=== PATIENT | female | born 1985 | race Two or more races ===

== ENCOUNTER 2025-04-29 08:32 | Emergency (ER) | payer MEDICAID, OTHER ==
[~2025-04-29] VITALS: Ht 165.1 cm; Wt 78.0 kg
--- NOTE | 2025-04-29 09:28 | ED.PDOC ---
Back pain HPI HPI Comments 39 year old female with no past medical history presents to the ED with chief complaint of low back pain onset 2 days. Patient is currently 7 weeks , P:1 A:1. Patient began experiencing low back pain as well as suprapubic pain for the past 2 days, has not taken medication to manage pain. Last OBGYN visit was 04/23/25, was diagnosed with Bacterial Vaginosis, was given treatment, next appointment is 05/07/25. Currently rates pain 8/10. No other symptoms or modifying factors present a this time. Denies trauma or heavy lifting Denies fevers chills night sweats nausea vomiting Denies previous back procedures or surgeries Denies dysuria, hematuria Chief Complaint: Back Pain Time Seen by MD: 09:10 Reviewed Notes: Medications, Allergies Allergies: Coded Allergies: NO KNOWN ALLERGIES (Unverified , 04/29/25) Information Source: Patient Mode of Arrival: Ambulatory Timing: Days Duration: Since onset Severity: Moderate Prehospital treatment: None Quality: Sharp Onset: Spontaneous History of: None Modifying Factors: Nothing Past Medical History PAST MEDICAL HISTORY: Denies Surgical History: Denies all surgeries CONTINUOUS IMPROVEMENT CONSULTANT History: No Pertinent CONTINUOUS IMPROVEMENT CONSULTANT History Family History Family History: Reviewed,noncontributory to illness, No family hx of Cancer, No family hx of DM, No family hx of Heart jose, No family hx of HTN, No family hx ofKidney jose, No family hx of Liver jose, No family hx of Lung jose, No family hx of Stroke Social History Smoker: Non-Smoker Alcohol: Denies ETOH Use Drugs: Denies Drug Use Lives In: Home All Other Systems: Reviewed and Negative (as per HPI) Physical Exam General Appearance: No Apparent Distress, Normal HEENT: Normal ENT Inspection, Pharynx Normal, TMs Normal Neck: Full Range of Motion, Non-Tender, Normal, Normal Inspection Respiratory: Chest Non-Tender, Lungs Clear, No Accessory Muscle Use, No Respiratory Distress, Normal Breath Sounds Cardiovascular: No Edema, No JVD, No Murmur, No Gallop, Normal Peripheral Pulses, Regular Rate/Rhythm Breast Exam: Deferred Gastrointestinal: No Organomegaly, Non Tender, No Pulsatile Mass, Normal Bowel Sounds, Soft, Other (pain to suprapubic region) Genitalia: Deferred Pelvic: Deferred Rectal: Deferred Extremities: No calf tenderness, Normal capillary refill, Normal inspection, Normal range of motion, Non-tender, No pedal edema Musculoskeletal : Location: Bilateral (back pain located bilateral lumbar region, ) Extremity Location: Back Apperance: Normal Neurologic: Alert, collar runner II-XII nml as Tested, No Motor Deficits, Normal Affect, Normal Mood, No Sensory Deficits Cerebellar Function: Normal Reflexes: Normal Skin: Dry, Normal Color, Warm Lymphatic: No Adenopathy Was a procedure done? Was a procedure done?: No X-Ray, Labs, Meds, VS Vital Signs Date Time Temp Pulse Resp B/P (MAP) Pulse Ox O2 Delivery O2 Flow Rate FiO2 04/29/25 08:34 97.8 63 18 142/93 98 97.8 Lab Test 04/29/25 10:19 04/29/25 09:49 04/29/25 09:29 Range/Units White Blood Count 9.7 4.4-10.8 10^3/uL Red Blood Count 4.46 4.0-5.20 10^6/uL Hemoglobin 14.8 12.2-16.2 g/dL Hematocrit 41.7 36.0-46.0 % Mean Corpuscular Volume 93.5 80.0-100.0 fL Mean Corpuscular Hemoglobin 33.2 H 28.0-32.0 pg Mean Corpuscular Hemoglobin Concent 35.4 32.0-36.0 g/dL Red Cell Distribution Width 13.6 11.8-14.3 % Platelet Count 313 140-450 10^3/uL Mean Platelet Volume 8.5 6.9-10.8 fL Neutrophils (%) (Auto) 52.7 37.0-80.0 % Lymphocytes (%) (Auto) 33.8 10.0-50.0 % Monocytes (%) (Auto) 10.8 0.0-12.0 % Eosinophils (%) (Auto) 1.6 0.0-7.0 % Basophils (%) (Auto) 1.1 0.0-2.0 % Neutrophils # (Auto) 5.1 1.6-8.6 10 ^3/uL Lymphocytes # (Auto) 3.3 0.4-5.4 10 ^3/uL Monocytes # (Auto) 1.1 0-1.3 10 ^3/uL Eosinophils # (Auto) 0.2 0-0.8 10 ^3/uL Basophils # (Auto) 0.1 0-0.2 10 ^3/uL Nucleated Red Blood Cells 0.1 % Sodium Level 135 L 136-145 mmol/L Potassium Level 4.3 3.5-5.1 mmol/L Chloride Level 102 98-107 mmol/L Carbon Dioxide Level 24 20-31 mmol/L Anion Gap 9 5-15 Blood Urea Nitrogen 8 L 9-23 mg/dL Creatinine 0.91 0.550-1.02 mg/dL Glomerular Filtration Rate Calc 83 >90 mL/min BUN/Creatinine Ratio 8.8 L 10.0-20.0 Serum Glucose 81 74-106 mg/dL Calcium Level 9.9 8.7-10.4 mg/dL Beta HCG, Quantitative 07695.0 H 1.5-4.2 mIU/mL Vaginal WBC (Wet Prep) Few Vaginal RBC (Wet Prep) Rare Vaginal Epithelial Cells (Wet Prep) Many Vaginal Bacteria (Wet Prep) Few Vaginal Trichomonas (Wet Prep) Not present Vaginal Yeast (Wet Prep) None seen Vaginal Clue Cells (Wet Prep) Few Urine Color Yellow Yellow Urine Clarity Clear Clear Urine pH 6.0 5.0-9.0 Urine Specific Josephine 1.021 1.001-1.035 Urine Protein Negative Negative Urine Ketones 1+ H Negative Urine Blood Negative Negative /uL Urine Nitrite Negative Negative Urine Bilirubin Negative Negative Urine Urobilinogen Normal Negative mg/dL Urine Leukocyte Esterase Negative Negative /uL Urine RBC 1 0 - 4 /hpf Urine Microscopic WBC < 1 0-5 /HPF Urine Squamous Epithelial Cells Few <5 /hpf Urine Bacteria None seen None Seen /hpf Urine Mucus Few None Seen Urine Glucose Normal Normal mg/dL Chlamydia trachomatis ([facility]) Pending Neisseria gonorrhoeae ([facility]) Pending X-Ray, Labs, Meds, VS Comment 39 year old female with no past medical history presents to the ED with chief complaint of low back pain onset 2 days. Patient arrives alert and oriented, ABC's intact, afebrile, vital signs stable, saturating well in room air labs were ordered. CBC was ordered to exclude anemia, blood loss, or infection. BMP was ordered to exclude electrolyte abnormalities, renal failure, dehydration, hyperglycemia Urinalysis was ordered to rule out UTI or hematuria. Beta HCG was ordered. Chlamydia/ GC amplification was ordered. Labs in the ED showed (pertinent+ and then pertinent-) Patient was given:_. Tolerated medications with no adverse reaction. Additional MDM Review of External, Non-ED records: External records reviewed. Discussion with independent historian (EMS, family) history obtained from the patient/parents (if applicable) at bedside Chronic conditions affecting care: None Social determinants of health affecting care: None Consideration of admission (observation or admission): I considered escalation of care to admission for this patient, however given the reassuring workup, the patient is safe for outpatient management. On reevaluation, patient had symptomatic improvement. Patient is stable for discharge at this time. External notes reviewed. Test results and diagnostic imaging interpreted. All diagnostic findings, discharge care, education and instructions provided Follow-up with PCP in 2 to 3 days Patient verbalized understanding and agreed to treatment plan Vital signs stable, afebrile, no acute distress noted Patient ambulatory with strong steady gait Advised to return precautions for any new or worsening symptoms, return to ER immediately for re-evaluation Patient is aware that the purpose of this visit was for an acute medical em ergency requiring emergent stabilization. Chronic conditions, including malignancies have not been ruled out. Patient is instructed to follow up with PCP as directed and discharge instructions for continued care and workup. If unable to arrange follow-up, patient is to return to the emergency department for reassessment. Patient (parent or legal guardian if applicable) was given verbal and written discharge instructions and acknowledges understanding. Time of 1ST Reevaluation: 09:40 Reevaluation 1ST: Improved Patient Education/Counseling: Diagnosis, Treatment Family Education/Counseling: No Family Present SEPSIS Sepsis Screen Date sepsis recognized/suspect: Apr 29, 2025 Time Sepsis recognized/suspect: 834 Recent Procedure: No On Antibiotic Therapy: No Respiratory Rate >20: No Heart Rate >90: No Temp<36 C (96.8 F) or >38.3 C: No SBP <90 or MAP <65 mmHG: No New Acute Mental Status Change: No Is the patient on CPAP, BIPAP,: No Physician Orders Chlamydia/Gc Amplification (04/29/25 09:24) Vital Signs Date Time Temp Pulse Resp B/P (MAP) Pulse Ox O2 Delivery O2 Flow Rate FiO2 04/29/25 08:34 97.8 63 18 142/93 98 97.8 Laboratory Tests Test 04/29/25 10:19 White Blood Count 9.7 10^3/uL (4.4-10.8) Departure 1 Departure Time of Disposition: 12:01 Impression: Primary Impression: Back pain Additional Impressions: Pelvic pain Bacterial vaginosis Disposition: 01 HOME / SELF CARE / HOMELESS Condition: Stable Critical Care Note Critical Care Time?: No Stability Stability form required: No Heart Score Heart Score: Heart Score Response (Comments) Value History N/A 0 EKG N/A 0 Age N/A 0 Risk Factors N/A 0 Troponin N/A 0 Total 0 I personally scribed for KIERRA WHITNEY NP ([email or web address]) on 04/29/25 at 09:28. Electronically submitted by Anat Macias ([email or web address]). I personally scribed for KIERRA WHITNEY NP ([email or web address]) on 04/29/25 at 09:30. Electronically submitted by Anat Macias ([email or web address]). KIERRA WHITNEY NP Apr 29, 2025 09:28
[2025-04-29 10:24] LABS: Urine Protein, UAD Negative (Negative)
[2025-04-29 10:41] LABS: Hematocrit 41.7 % (36.0-46.0); Hemoglobin 14.8 g/dL (12.2-16.2); Mean Corpuscular Hemoglobin 33.2 pg (28.0-32.0); Mean Corpuscular Volume 93.5 fL (80.0-100.0); Nucleated Red Blood Cells % 0.1 %
[2025-04-29 10:50] LABS: Chloride 102 mmol/L (98-107); Potassium 4.3 mmol/L (3.5-5.1)
[2025-04-29 10:51] LABS: Anion Gap 9 (5-15); Calcium 9.9 mg/dL (8.7-10.4); Carbon Dioxide 24 mmol/L (20-31)
[2025-04-29 10:55] LABS: Sodium 135 mmol/L (136-145)
[2025-04-29 10:56] LABS: BUN/Creatinine Ratio 8.8 (10.0-20.0); Glucose 81 mg/dL (74-106)
[2025-04-29 10:57] LABS: Blood Urea Nitrogen 8 mg/dL (9-23)
[2025-04-29 11:46] LABS: Vaginal Bacteria Few; Vaginal Clue Cells Few; Vaginal Epithelial Cells Many; Vaginal Trichomonas Not Present
[2025-04-29 12:10] VITALS: BP 126/82; PULSE 68; RESP 16; TEMP 98.3; O2SAT 97
[2025-05-01 06:07] LABS: Chlamydia Trachomatis, NAA Negative (Negative); Neisseria gonorrhoeae, NAA Negative (Negative)
== END 2025-04-29 12:11 | disposition home or self-care (01) ==
LOC: ER 08:32
DX: O23.591 Infection of other part of genital tract in pregnancy, first trimester (principal); B96.89 Other specified bacterial agents as the cause of diseases classified elsewhere; O26.891 Other specified pregnancy related conditions, first trimester; R10.20 Pelvic and perineal pain unspecified side; Z3A.01 Less than 8 weeks gestation of pregnancy
CPT/HCPCS: 36415; 80048; 81001; 84702; 85025; 87210